=== PATIENT | male | born 1970 | race African-American/Black ===

== ENCOUNTER 2017-02-16 21:42 | Emergency (ER) | payer MEDICAID, OTHER ==
[~2017-02-16] VITALS: Ht 172.7 cm; Wt 88.6 kg
[~2017-02-16 21:42] MED LIST: METO200T5 PO
[2017-02-16 21:45] VITALS: BP 153/100
[2017-02-16] MEDS ORDERED: KETOROLAC 30 MG/1 ML IM ONE (22:30)
[2017-02-16] MEDS ORDERED: KETOROLAC 30 MG/1 ML ONE (22:31)
== END 2017-02-16 23:23 | disposition home or self-care (01) ==
LOC: ED 23:17
DX: S16.1XXA Strain of muscle, fascia and tendon at neck level, initial encounter (principal); I10 Essential (primary) hypertension; V43.52XA Car driver injured in collision with other type car in traffic accident, initial encounter; Y93.89 Activity, other specified; Y92.410 Unspecified street and highway as the place of occurrence of the external cause; Y99.8 Other external cause status
CPT/HCPCS: 72050; 96372; 99284; J1885